=== PATIENT | male | born 1985 | race African-American/Black ===

== ENCOUNTER 2020-06-09 02:58 | Outpatient (CLI) | payer MEDICAID | END 2020-06-09 02:59 | disposition critical access hospital (66) | LOC: EMS 02:58 | DX: R44.8 Other symptoms and signs involving general sensations and perceptions (principal) | CPT/HCPCS: A0425; A0429 ==

== ENCOUNTER 2020-06-09 03:15 | Emergency (ER) | payer SELFPAY ==
--- NOTE | 2020-06-09 03:38 | ED Physician Documentation ---
History of Present Illness - Stated complaint Stated Complaint: [facility] - Chief complaint Chief Complaint: General - History obtained from History obtained from: Patient - Additonal information Additional information: 34-year-old man with no known past medical history presents with "Feeling of doom" After taking acid late this evening. Brought in by EMS reporting full body discomfort and facial numbness. Patient is visibly intoxicated upon arrival to the emergency department. History limited by intoxication. Review of Systems Unable to obtain: [facility] PD PAST MEDICAL HISTORY - Past Surgical History Past Surgical History: No - Present Medications Home Medications: Ambulatory Orders Medication Instructions Recorded Confirmed No Known Home Medications 04/28/14 06/09/20 - Allergies Allergies/Adverse Reactions: Allergies Allergy/AdvReac Type Severity Reaction Status Date / Time No Known Drug Allergies Allergy Verified 06/09/20 03:26 - Social History Does the pt smoke?: No Smoking Status: Never smoker Does the pt drink ETOH?: No Does the pt have substance abuse?: No - Immunizations Immunizations are current?: Yes - POLST Patient has POLST: No PD ED PE NORMAL - Vitals Vital signs reviewed: Yes - General General: No acute distress, Well developed/nourished, Other (alert, cooperative, clinically intoxicated. ) - HEENT HEENT: Atraumatic, PERRL (pupils dilated 4mm), EOMI, Moist mucous membranes - Neck Neck: Supple, no meningeal sign - Cardiac Cardiac: RRR - Respiratory Respiratory: No respiratory distress, Clear bilaterally - Abdomen Abdomen: Non tender, Non distended - Derm Derm: Normal color, Warm and dry - Extremities Extremities: No deformity - Neuro Neuro: Alert and oriented X 3 - Psych Psych: Normal mood, Normal affect Results - Vitals Vitals: Vital Signs - 24 hr 06/09/20 06/09/20 06/09/20 03:22 03:58 03:59 Temperature 36.6 C Heart Rate 66 64 Respiratory 16 17 17 Rate Blood Pressure 151/87 H 147/89 H O2 Saturation 98 99 06/09/20 04:23 Temperature Heart Rate 60 Respiratory 19 Rate Blood Pressure O2 Saturation 99 Oxygen O2 Source Room air PD MEDICAL DECISION MAKING - ED course ED course: 4:30 AMpatient is feeling better and is now alert and oriented. He states that usually he takes only half a tab of acid and he took five tabs this evening. He denies any pain anywhere and is asymptomatic at present. Apologetic and asking to use the restroom. Ambulatory to bathroom without difficulty. Departure - Departure Disposition: 01 Home, Self Care Clinical Impression: LSD reaction Condition: Good Instructions: ED Drug Abuse General Comments: You were seen in the emergency department after taking a significant amount of LSD. We did an EKG that did not show any concerning findings. You had high blood pressure while you are here so you should have that rechecked by your doctor. Do not use drugs. Please exercise restraint when using hallucinogenic drugs in future and make sure you do it in a safe environment if you are going to do so. Please follow-up with your primary doctor this week. Return to the emergency department if you experience any new or worsening symptoms or have other concerns.
--- OUTSIDE RECORDS SUMMARY | 2020-06-09 04:15 | EXTERNAL MEDICAL SUMMARY RPT | Continuity of Care Document ---
:1985 Demographics Phone Unavailable Preferred Language Togolese Marital Status Unknown Zoroastrian Affiliation Unknown Race Unknown Ethnic Group Unknown Author Organization [place] Address [address] [place] [address] Phone Problems date description facility [id number] Contact with and (suspected) exposure t o COVID-19 [facility] [id number] Encounter for screening for other viral diseases [facility] Social History date description facility [id number]
[2020-06-09 04:43] VITALS: BP 136/75
== END 2020-06-09 05:10 | disposition home or self-care (01) ==
LOC: EDUNIT# → ED 03:15 → SUPCPDRO 03:15 → ED 05:10
DX: T40.8X1A Poisoning by lysergide [LSD], accidental (unintentional), initial encounter (principal)
CPT/HCPCS: 93005; 99281; 99284